=== PATIENT | male | born 2000 | race Caucasian/White ===

== ENCOUNTER 2018-01-04 04:23 | Emergency (ER) | payer BC ==
[2018-01-04] MEDS ORDERED: NS 1,000 ML IV ONE (04:33)
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
[2018-01-04 05:17] LABS: PLATELET COUNT 339 10^3/uL (150-400)
[2018-01-04 07:44] VITALS: BP 122/85
== END 2018-01-04 07:41 | disposition home or self-care (01) ==
PROC: 0HQ0XZZ Repair Scalp Skin, External Approach (ICD-10-PCS; principal; 2018-01-04)
DX: S01.01XA Laceration without foreign body of scalp, initial encounter (principal); Y09 Assault by unspecified means; F10.129 Alcohol abuse with intoxication, unspecified; Y90.6 Blood alcohol level of 120-199 mg/100 ml
CPT/HCPCS: G0480